=== PATIENT | male | born 1985 | race Caucasian/White ===

== ENCOUNTER 2016-04-14 13:02 | Inpatient (IN) | payer BC ==
[~2016-04-14] VITALS: Ht 190.5 cm; Wt 87.6 kg
[2016-04-14 14:20] LABS: HEMATOCRIT 43.9 % (38.0-50.0); MCH 33.3 PG (29.0-34.0); MCHC 35.1 G/DL (30.0-36.0); MEAN PLAT.VOLUME 9.7 uM^3 (9.0-12.4); PLATELET COUNT 238 K/uL (156-360); RBC DIS.WIDTH-CV 12.2 % (11.8-14.6); RBC DIS.WIDTH-SD 41.7 % (39-53); RED BLOOD COUNT 4.62 M/uL (4.00-5.50)
[2016-04-14 14:32] LABS: CHLORIDE 108 mEq/L (99-109); POTASSIUM 4.3 mEq/L (3.7-5.4); SODIUM 140 mEq/L (136-147)
[2016-04-14 14:34] LABS: GLUCOSE 92 mg/dL (70-99)
[2016-04-14 14:36] LABS: TOTAL BILIRUBIN 0.5 mg/dL (0.0-1.0)
[2016-04-14 14:38] LABS: ALKALINE PHOSPHATASE 63 IU/L (3-129); GFR ESTIMATE (CALCULATED) > 59 mL/min/
[2016-04-14 14:39] LABS: UREA NITROGEN (BUN) 12 mg/dL (9-23)
[2016-04-14 14:40] LABS: DIRECT BILIRUBIN 0.2 mg/dL (0.0-0.3)
[2016-04-14 14:55] LABS: ANION GAP 11 MEQ/L (2-14)
[2016-04-14] MEDS ORDERED: TRUVADA1 TABLET PO (17:56)
[2016-04-14] MEDS ORDERED: AFRIN,GENASAL D15 ML BOTH NARES (17:57)
[2016-04-14 19:33] VITALS: BP 154/81
[2016-04-15] VITALS (7 sets, daily range): BP systolic 116–147; BP diastolic 56–74
[2016-04-16 03:41] VITALS: BP 132/78
[2016-04-16 08:01] VITALS: BP 129/76
[2016-04-16 10:54] VITALS: BP 130/76
== END 2016-04-16 13:54 | disposition hospice, inpatient (51) | DRG 201 ==
LOC: EME 13:02 → 2EAST 17:38 → EDOF 17:38 → 2EAST 19:21
PROC: 0W9B30Z Drainage of Left Pleural Cavity with Drainage Device, Percutaneous Approach (ICD-10-PCS; principal; 2016-04-14)
DX: J93.83 Other pneumothorax (principal); F17.210 Nicotine dependence, cigarettes, uncomplicated; Z71.6 Tobacco abuse counseling; F32.9 Major depressive disorder, single episode, unspecified; Z20.6 Contact with and (suspected) exposure to human immunodeficiency virus [HIV]; Z98.84 Bariatric surgery status
CPT/HCPCS: 32560; 71010; 71020; 80048; 80076; 84484; 85027; 93005; 99281; 99285; J1885; J3010; J7040

== ENCOUNTER → 2016-04-30 | Outpatient (CLI) | payer BC ==
[~2016-04-30] MED LIST: AFRIN,GENASAL D15 ML BOTH NARES; TRUVADA1 TABLET PO; VITAMIN D2000 UNI1 PO
== END | disposition home or self-care (01) ==
LOC: AMB 13:00
DX: Z09 Encounter for follow-up examination after completed treatment for conditions other than malignant neoplasm (principal); F17.200 Nicotine dependence, unspecified, uncomplicated
CPT/HCPCS: 99211

== ENCOUNTER 2016-06-03 21:39 | Emergency (ER) | payer BC ==
[~2016-06-03] VITALS: Ht 190.5 cm; Wt 88.9 kg
[2016-06-03] MEDS ORDERED: LIDODERM 5% P1 PATCH TD (23:52)
[2016-06-03] MEDS ORDERED: ZANAFLEX2 MG PO (23:52)
[2016-06-04 00:03] VITALS: BP 137/84
== END 2016-06-04 00:03 | disposition home or self-care (01) ==
LOC: EME 21:39
DX: M94.0 Chondrocostal junction syndrome [Tietze] (principal); S29.012A Strain of muscle and tendon of back wall of thorax, initial encounter; X50.9XXA Other and unspecified overexertion or strenuous movements or postures, initial encounter; Z98.84 Bariatric surgery status; F17.200 Nicotine dependence, unspecified, uncomplicated
CPT/HCPCS: 71020; 99281; 99284; J1885

== ENCOUNTER → 2016-10-08 | Outpatient (CLI) | payer BC ==
[~2016-10-08] VITALS: Ht 190.5 cm; Wt 88.5 kg
[~2016-10-08] MED LIST changes: +CLARITIN,ALAVAR10 MG PO; +LIDODERM 5% P1 PATCH TD; +MEN'S MULTI-VI1 EACH PO; +ZANAFLEX2 MG PO
== END | disposition home or self-care (01) ==
LOC: AMB 08:00
PROC: 0DBN8ZX Excision of Sigmoid Colon, Via Natural or Artificial Opening Endoscopic, Diagnostic (ICD-10-PCS; principal; 2016-10-08)
DX: K63.5 Polyp of colon (principal); K60.2 Anal fissure, unspecified; K64.4 Residual hemorrhoidal skin tags; Z98.84 Bariatric surgery status; F41.1 Generalized anxiety disorder; F17.200 Nicotine dependence, unspecified, uncomplicated; L25.9 Unspecified contact dermatitis, unspecified cause
CPT/HCPCS: 88305